=== PATIENT | male | born 1950 | race Caucasian/White ===

== ENCOUNTER → 2019-05-11 | Outpatient (CLI) | payer MEDICARE, OTHER ==
--- NOTE | 2019-05-11 08:52 | Diagnostic Imaging Report ---
PROCEDURE: CT abdomen and pelvis without contrast. TECHNIQUE: Multiple contiguous axial images were obtained through the abdomen and pelvis without the use of intravenous contrast. Auto Exposure Controls were utilized during the CT exam to meet ALARA standards for radiation dose reduction. INDICATION: Hematuria at examination by physician. Denies pain. History of nephrolithiasis. CORRELATION STUDY: None FINDINGS: Unenhanced liver, pancreas, adrenal glands and gallbladder appear unremarkable. Few calcified granulomas in spleen, otherwise unremarkable. The abdominal aorta normal in contour with mild wall calcification. There is diffuse thinning and atrophic appearance about the renal parenchyma of both kidneys relatively symmetric. Prominent bilateral peripelvic cysts are present. Additional probable 15 mm cortical cyst right kidney. Right kidney punctate nonobstructing stone. There is a large 18 x 12 x 19 mm stone in the left renal pelvis. This results in at least mild hydronephrosis. No ureteric calcification. Moderate severity fecal retention throughout the colon. Colonic diverticulosis particularly at the descending and sigmoid colon. Long but normal appendix in the right lower quadrant. No abnormal ascites or free air. Urinary bladder decompressed and therefore not well evaluated. Prostate gland appears of relatively normal size. Osseous structures without acute abnormality. IMPRESSION: 1. Large, nearly 2 cm stone at the left renal pelvis resulting in at least mild obstruction. Additional nonobstructing bilateral renal stones also present. Dictated by: Dictated on workstation # [id number]
== END ==
LOC: RAD 08:07
PROVIDERS: ATTEND Family Medicine
DX: N20.0 Calculus of kidney (principal)
CPT/HCPCS: 74176